=== PATIENT | male | born 1955 | race Hispanic/Latino ===

== ENCOUNTER 2021-08-30 16:04 | Outpatient (CLI) | payer MEDICARE ==
[2021-08-30 23:51] LABS: SARS-CoV-2 PCR by NAA Not Detected (NotDetected)
== END 2021-08-30 16:05 | disposition home or self-care (01) ==
LOC: LABBT 16:04
PROVIDERS: ATTEND Ophthalmology Retina Specialist
DX: Z01.812 Encounter for preprocedural laboratory examination (principal); H35.342 Macular cyst, hole, or pseudohole, left eye; Z20.822 Contact with and (suspected) exposure to COVID-19
CPT/HCPCS: U0003; U0005

== ENCOUNTER 2021-09-03 05:59 | Day surgery (SDC) | payer MEDICARE ==
[2021-08-26 11:46] VITALS: BMI 32.6
[2021-09-03] MEDS ORDERED: Midazolam HCl 2 mg/2 ml Vial ONE (06:30)
[2021-09-03] MEDS ORDERED: Fentanyl 100 MCG/2 ML VIAL ONE (06:30)
[2021-09-03] MEDS ORDERED: EPINEPHrine 0.3 MG in Ophthalmic Irrigation Solution 500 ML IRR SCH (06:45)
[2021-09-03] MEDS ORDERED: Cyclopentolate 1% Opth Drop 2 ML BOT ONE (07:03)
[2021-09-03] MEDS ORDERED: Phenylephrine 2.5% Ophth Soln 5 ML BOT ONE (07:03)
[2021-09-03] MEDS ORDERED: Lidocaine 1% PF 5 ML VIAL ONE (08:23)
[2021-09-03] MEDS ORDERED: Triamcinolone 40 MG/ML VIAL ONE (08:23)
[2021-09-03] MEDS ORDERED: Indocyanine Green 25 MG/10 ML VIAL ONE (08:23)
[2021-09-03] MEDS ORDERED: Maxitrol 0.1% Opth Oint 3.5 GM TUBE ONE (08:23)
[2021-09-03] MEDS ORDERED: Bupivacaine PF 0.75% SDV 10 ML ONE (08:23)
[2021-09-03] MEDS ORDERED: PROPOFOL 200 MG/20 ML VIAL ONE (08:23)
[2021-09-03] MEDS ORDERED: CEFAZOLIN 1 GM VIAL ONE (08:23)
[2021-09-03] MEDS ORDERED: Lidocaine 4% PF 5 ML AMP ONE (08:23)
== END 2021-09-03 09:50 | disposition home or self-care (01) ==
LOC: SDC 05:59
PROVIDERS: ATTEND Ophthalmology Retina Specialist
PROC: 08T53ZZ Resection of Left Vitreous, Percutaneous Approach (ICD-10-PCS; principal; 2021-09-03)
PROC: 08NF3ZZ Release Left Retina, Percutaneous Approach (ICD-10-PCS; 2021-09-03)
DX: H35.342 Macular cyst, hole, or pseudohole, left eye (principal); I10 Essential (primary) hypertension; E78.5 Hyperlipidemia, unspecified; I25.10 Atherosclerotic heart disease of native coronary artery without angina pectoris; Z79.02 Long term (current) use of antithrombotics/antiplatelets; Z79.84 Long term (current) use of oral hypoglycemic drugs; Z79.899 Other long term (current) drug therapy; Z95.5 Presence of coronary angioplasty implant and graft
CPT/HCPCS: 67025; J0171; J0690; J2250; J2704; J3010; J3301; J3490